=== PATIENT | female | born 1945 | race Caucasian/White ===

== ENCOUNTER → 2020-03-11 | Outpatient (CLI) | payer MEDICARE ==
[~2020-03-11] MED LIST: BARIUM for suspension 96% w/w (Vanilla Silq Medium Density) PO ONE; BARIUM for suspension 98% w/w (Vanilla Silq High Density) PO ONE
--- NOTE | 2020-03-11 11:12 | Diagnostic Imaging Report ---
INDICATION: Dysphagia. Patient ingested effervescent crystals as well as thin and thick barium and imaging of the esophagus was performed. A total of 1 minute and 6 seconds of fluoroscopic time was utilized. The esophagus has fairly smooth contour. No definite mass or stricture is identified. No definite gastroesophageal reflux or hiatal hernia was demonstrated. IMPRESSION: Unremarkable esophagram. Dictated by: Dictated on workstation # [id number]
== END ==
LOC: RAD 09:10
PROVIDERS: ATTEND Nurse Practitioner
DX: R13.14 Dysphagia, pharyngoesophageal phase (principal); R09.82 Postnasal drip; Z97.8 Presence of other specified devices
CPT/HCPCS: 74220